=== PATIENT | male | born 1955 | race Caucasian/White ===

== ENCOUNTER 2022-03-19 10:44 | Emergency (ER) | payer OTHER ==
[2022-03-19 11:08] VITALS: BP 152/108
[2022-03-19 12:22] LABS: BASOPHILS # (AUTO) 0.1 10^3/uL (0.0-0.1); BASOPHILS % (AUTO) 0.7 %; EOSINOPHILS # (AUTO) 0.1 10^3/uL (0.0-0.7); EOSINOPHILS % (AUTO) 1.4 %; HCT - HEMATOCRIT 51.1 % (42.0-52.0); HGB - HEMOGLOBIN 16.7 g/dL (14.0-18.0); LYMPHOCYTES % (AUTO) 21.2 %; MEAN CORPUSCULAR HEMOGLOBIN 29.1 pg (27.0-31.0); MEAN CORPUSCULAR HGB CONC 32.7 g/dL (32.0-36.0); MEAN PLATELET VOLUME 11.3 fL (7.4-11.4); MONOCYTES # (AUTO) 0.7 10^3/uL (0.0-1.0); MONOCYTES % (AUTO) 7.8 %; NEUTROPHILS # (AUTO) 6.5 10^3/uL (1.5-6.6); NEUTROPHILS % (AUTO) 68.5 %; PLT - PLATELET COUNT 258 10^3/uL (130-450); RED BLOOD COUNT 5.74 10^6/uL (4.70-6.10); RED CELL DISTRIBUTION WIDTH 14.4 % (12.0-15.0); WHITE BLOOD COUNT 9.4 x10^3/uL (4.8-10.8)
[2022-03-19 12:32] LABS: CALCIUM 9.2 mg/dL (8.5-10.3); CREATININE 1.6 mg/dL (0.6-1.2); POTASSIUM 3.8 mmol/L (3.5-5.0)
[2022-03-19 12:43] LABS: GLUCOSE, URINE (UA) NEGATIVE (NEGATIVE); KETONES,URINE (UA) TRACE mg/dL (NEGATIVE); LEUKOCYTE ESTERASE, URINE NEGATIVE (NEGATIVE); NITRITE,URINE NEGATIVE (NEGATIVE); OCCULT BLOOD,URINE NEGATIVE (NEGATIVE); PROTEIN,URINE 30 mg/dL (NEGATIVE); UROBILINOGEN,URINE 1 (NORMAL) E.U./dL (NORMAL)
[2022-03-19 12:46] LABS: BILIRUBIN,URINE NEGATIVE (NEGATIVE); CLARITY,URINE SL. CLOUDY (CLEAR); ICTOTEST,URINE NEGATIVE
[2022-03-19 13:01] LABS: BACTERIA,URINE Few /HPF (None Seen); MUCUS,URINE Moderate Strands; SQUAMOUS EPITHELIAL CELL,UR MOD Squamous (<= Few); WBC,URINE >25 /HPF (0-3)
[2022-03-19] MEDS ORDERED: iohexoL-300 100 ML VIAL ONE (13:56)
--- NOTE | 2022-03-19 14:06 | ED Physician Documentation ---
PD HPI BACK PAIN - Stated complaint Stated Complaint: BACK PX - Chief complaint Chief Complaint: Trauma Ch/Bk - History obtained from History obtained from: Patient - Additional information Additional information: Patient is a 66-year-old male presenting for evaluation of left flank pain that is been present since Thursday. He slipped and fell coming out of the shower and struck the left flank area against a counter. He denies hitting his head or LOC. He does not take a blood thinner. He has noticed bruising to the area with increased pain over the last day. He denies pain elsewhere. Nothing makes the pain better. The pain is worse with movements. Denies hematuria or difficulties with urination. Review of Systems Constitutional: denies: Fever Nose: denies: Congestion Throat: denies: Sore throat Cardiac: denies: Chest pain / pressure Respiratory: denies: Dyspnea, Cough GI: denies: Abdominal Pain, Vomiting Musculoskeletal: reports: Back pain Neurologic: denies: Head injury PD PAST MEDICAL HISTORY - Present Medications Home Medications: Ambulatory Orders Medication Instructions Recorded Confirmed Oxycodone HCl/Acetaminophen 1 each PO Q6H PRN #14 tablet 03/19/22 [Percocet 5-325 mg Tablet] - Allergies Allergies/Adverse Reactions: Allergies Allergy/AdvReac Type Severity Reaction Status Date / Time morphine AdvReac Headache Verified 03/19/22 10:55 PD ED PE NORMAL - General General: Alert and oriented X 3, No acute distress, Well developed/nourished - HEENT HEENT: Atraumatic, Moist mucous membranes - Neck Neck: Supple, no meningeal sign - Cardiac Cardiac: RRR, Strong equal pulses - Respiratory Respiratory: No respiratory distress, Clear bilaterally - Abdomen Abdomen: Soft, Non tender - Back Back: No spinal TTP. No: No CVA TTP (Ecchymosis to left flank with overlying tenderness) - Derm Derm: Warm and dry - Extremities Extremities: No edema - Neuro Neuro: Normal speech Results - Vitals Vitals: Vital Signs - 24 hr 03/19/22 10:50 Temperature 36.4 C L Heart Rate 95 Respiratory 14 Rate Blood Pressure 152/108 H O2 Saturation 94 Oxygen O2 Source Room air - Labs Labs: Laboratory Tests 03/19/22 03/19/22 03/19/22 12:16 12:16 12:30 WBC 9.4 RBC 5.74 Hgb 16.7 Hct 51.1 MCV 89.0 MCH 29.1 MCHC 32.7 RDW 14.4 Plt Count 258 MPV 11.3 Neut # (Auto) 6.5 Lymph # (Auto) 2.0 Dubois # (Auto) 0.7 Eos # (Auto) 0.1 Baso # (Auto) 0.1 Absolute Nucleated RBC 0.00 Nucleated RBC % 0.0 Sodium 140 Potassium 3.8 Chloride 104 Carbon Dioxide 24 Anion Gap 12.0 BUN 26 H Creatinine 1.6 H Estimated GFR (MDRD) 43 L Glucose 167 H Calcium 9.2 Urine Color DARK YELLOW Urine Clarity SL. CLOUDY Urine pH 6.0 Ur Specific [place] >=1.030 H Urine Protein 30 H Urine Glucose (UA) NEGATIVE Urine Ketones TRACE Urine Occult Blood NEGATIVE Urine Nitrite NEGATIVE Urine Bilirubin NEGATIVE Urine Urobilinogen 1 (NORMAL) Ur Leukocyte Esterase NEGATIVE Urine RBC 6-10 H Urine WBC >25 H Ur Squamous Epith Cells MOD Squamous H Urine Bacteria Few Urine Casts 0-2 WBC Casts Urine Mucus Moderate Strands Ur Microscopic Review INDICATED Urine Culture Comments NOT INDICATED PD MEDICAL DECISION MAKING - ED course Complexity details: reviewed results, re-evaluated patient, d/w patient ED course: Patient presenting for evaluation of flank hematoma after recent fall. Has no midline spinal tenderness and has a normal neuro exam. Abdominal exam is benign and vital signs are overall stable. Labs are reassuring. CT scan does not show signs of intra abdominal bleeding but does show fractures of 3 Transverse spinous processes. I did review these findings with the patient. He is not requiring pain medication here but I did feel it could be helpful for him to get some sleep at night as that is when the pain is more severe. I did encourage him to have close follow-up with the primary care doctor. Patient was counseled on concerning symptoms to return for. Departure - Departure Disposition: 01 Home, Self Care Clinical Impression: Lumbar transverse process fracture Condition: Stable Instructions: ED Fx Transverse Spinous Process Follow-Up: Tonja Gunter ARNP [Provider Admit Priv/Credential] - Prescriptions: Oxycodone HCl/Acetaminophen [Percocet 5-325 mg Tablet] 1 each PO Q6H PRN #14 tablet PRN Reason: pain Comments: You were evaluated for pain to your back after an injury. You have fractures to 3 of your lumbar vertebra. I have sent a prescription for pain medication to [facility] in [place]. Would also recommend using ice or lidocaine patches to help with your pain. I would recommend follow-up with your primary care doctor. If you do not have 1 I have listed one that You can establish care with. If you have any worsening symptoms please return to the ER. IMPRESSION: 1. Acute slightly displaced fracture involving left transverse processes of L1- L3 vertebral bodies. No other fracture or dislocation. No vertebral body compression fracture or spondylolisthesis. 2. No acute solid organ injury is seen in abdomen or pelvis. No free fluid or free air. 3. Right renal cyst as above. No stones or hydronephrosis. Mild diffuse bladder wall thickening which may be due to underdistention. Low-grade cystitis cannot be excluded. I am prescribing a short course of narcotic pain medication for you. These are potentially dangerous and addictive medications that should be used carefully. These medications may constipate you. Take an oxzo-ozp-ihaaqnm stool softener (docusate) twice daily with plenty of water while taking these medications. If you go 24 hours without a bowel movement, take poin-qgj-riontfo miralax, per package instructions. Do not drink or drive while taking these medications. If you received narcotic or sedating medications while in the emergency department, do not drive for 24 hours. Store this medication in a safe, secure place and out of reach of children. It is a violation of federal law to give or sell this medication to another person or to use in a manner other than prescribed. The ED will not refill narcotic prescriptions, including prescriptions lost or stolen. To dispose of unwanted medications: 1. [facility] at [address] in [place] has a medication drop box. They accept prescription medications (in pill form) Thursday through Thursday 9:00 a.m. to 5:00 p.m. 2. [facility] accepts prescription medications (in pill form only) for disposal year round. Call for more information. 3. Contact the [facility] for the next [facility] sponsored prescription drug collection event. , [phone], or [phone]; Note that many narcotic pain relievers also contain Tylenol/acetaminophen. Please ensure that your total dose of acetaminophen from all sources does not exceed 3 g (3000 mg) per day. Discharge Date/Time: 03/19/22 15:55
--- NOTE | 2022-03-19 15:21 | CT Report ---
PROCEDURE: ABDOMEN/PELVIS W INDICATIONS: L flank pain/hematoma/fell into tub CONTRAST: 100mL Omnipaque 300 TECHNIQUE: After the administration of IV contrast, 5 mm thick sections acquired from the diaphragms to the symp hysis. 5 mm thick coronal and sagittal reformats were acquired. For radiation dose reduction, the f ollowing was used: automated exposure control, adjustment of mA and/or kV according to patient size. COMPARISON: None. FINDINGS: Image quality: Excellent. ABDOMEN: Lung bases: Lung bases are clear. Heart size is normal. Solid organs: Liver and spleen are normal in size and enhancement. Moderate to severe hepatic steat osis is seen. No hepatic laceration or discrete hepatic lesion. Gallbladder is surgically absent. Daniel iary system is non dilated. Pancreas enhances normally. No adrenal nodules. Kidneys demonstrate no rmal size and enhancement, without hydronephrosis. 4.4 x 4.7 cm simple appearing cyst in mid pole of right kidney is seen. Peritoneum and bowel: Bowel loops demonstrate normal wall thickness and caliber. No free fluid or a ir. Nodes and vessels: No retroperitoneal or mesenteric adenopathy by size criteria. Aorta and inferior vena cava are normal in size. Miscellaneous: Small umbilical hernia is seen containing fat only. PELVIS: Genitourinary: Mild diffuse bladder wall thickening, no discrete bladder wall mass. Miscellaneous: No inguinal hernias or adenopathy. There is prior prostatectomy with surgical clips seen. Bones: No suspicious bony lesions. No vertebral body compression fractures. Acute displaced fractu res involving left transverse processes of L1-L3 levels are seen IMPRESSION: 1. Acute slightly displaced fracture involving left transverse processes of L1-L3 vertebral bodies. N o other fracture or dislocation. No vertebral body compression fracture or spondylolisthesis. 2. No acute solid organ injury is seen in abdomen or pelvis. No free fluid or free air. 3. Right renal cyst as above. No stones or hydronephrosis. Mild diffuse bladder wall thickening which may be due to underdistention. Low-grade cystitis cannot be excluded. Reviewed by: Roderick Guerrero MD on 03/19/2022 3:20 PM PST Approved by: Roderick Guerrero MD on 03/19/2022 3:20 PM PST Station ID: [id number]
[2022-03-19] MEDS ORDERED: iohexoL-300 100 ML VIAL IVP ONE (18:21)
== END 2022-03-19 15:55 | disposition home or self-care (01) ==
LOC: ED 10:44
DX: S32.009A Unspecified fracture of unspecified lumbar vertebra, initial encounter for closed fracture (principal); W18.2XXA Fall in (into) shower or empty bathtub, initial encounter; Y93.E1 Activity, personal bathing and showering
CPT/HCPCS: 36415; 74177; 80048; 81001; 85025; 99282; 99284; Q9967; 81003; 87086

== ENCOUNTER 2022-06-17 14:48 | Emergency (ER) | payer OTHER ==
[2022-06-17 14:57] VITALS: BP 150/103
--- NOTE | 2022-06-17 15:17 | ED Physician Documentation ---
History of Present Illness - Stated complaint Stated Complaint: BACK PX - Chief complaint Chief Complaint: Back Pain - Additonal information Additional information: 66 -year-old male presents to the emergency department requesting we fill out medical forms allowing him to have a modified work duty and a special chair at work. He states that in September he fell and fractured his ribs. His employer is requiring him to present to the office 2 to 3 days a week and he finds the chairs they are too uncomfortable. States he no longer has his primary care doctor as his doctor retired. Review of Systems Musculoskeletal: reports: Back pain PD PAST MEDICAL HISTORY - Past Medical History Past Medical History: Yes Cardiovascular: None Respiratory: Sleep apnea Neuro: None Endocrine/Autoimmune: None GI: None : None, Other HEENT: None Psych: None Musculoskeletal: Gout, Chronic back pain Derm: None Other Past Medical History: prostate cancer - Past Surgical History Past Surgical History: Yes General: Cholecystectomy - Present Medications Home Medications: Ambulatory Orders Medication Instructions Recorded Confirmed Colchicine 0.6 mg PO BID PRN 06/17/22 06/17/22 - Allergies Allergies/Adverse Reactions: Allergies Allergy/AdvReac Type Severity Reaction Status Date / Time morphine AdvReac Headache Verified 06/17/22 14:53 - Social History Does the pt smoke?: No Smoking Status: Never smoker Does the pt drink ETOH?: No Does the pt have substance abuse?: No - Immunizations Immunizations are current?: No PD ED PE NORMAL - General General: Alert and oriented X 3, Well developed/nourished (obese) - Neuro Neuro: Other (Normal gait) - Psych Psych: Other (angry affect) Results - Vitals Vitals: Vital Signs - 24 hr 06/17/22 14:53 Temperature 37.1 C Heart Rate 100 Respiratory 18 Rate Blood Pressure 150/103 H O2 Saturation 95 Oxygen O2 Source Room air PD Medical Decision Making - ED course Complexity details: d/w patient ED course: 66-year-old male requesting we fill out longer-term paperwork making allowances for specialized chair at work as well as limiting his time that he needs to be in office. Unfortunately I discussed with the patient that this type of paperwork is best completed by primary care provider so they can monitor longer- term progress as well as follow-up with any questions the employer may have. This is exceedingly difficult for emergency department providers to do. The patient is frustrated and angry. He states that he should have been told in registration that ER doctors cannot fill out this kind of paperwork. I discussed with him that EMTALA is a guideline that does not allow us to deny a medical screening exam or refuse to evalute a patient even if for paperwork problems. I encouraged him to reestablish with a pcp or to use one of the local walk in clinics to have the paperwork filled out. The patient ultimately eloped from the ED frustrated and angry. Departure - Departure Disposition: ED Elope Clinical Impression: Encounter for medical screening examination
== END 2022-06-17 15:49 | disposition left against medical advice (07) ==
LOC: ED 14:48
DX: Z02.79 Encounter for issue of other medical certificate (principal)
CPT/HCPCS: 99281; 99282

== ENCOUNTER 2022-09-11 10:50 | Outpatient (CLI) | payer OTHER ==
[2022-09-11 14:28] LABS: BASOPHILS % (AUTO) 0.3 %; EOSINOPHILS # (AUTO) 0.1 10^3/uL (0.0-0.7); EOSINOPHILS % (AUTO) 1.6 %; HCT - HEMATOCRIT 53.4 % (42.0-52.0); HGB - HEMOGLOBIN 17.2 g/dL (14.0-18.0); LYMPHOCYTES # (AUTO) 2.1 10^3/uL (1.5-3.5); LYMPHOCYTES % (AUTO) 30.7 %; MEAN CORPUSCULAR HEMOGLOBIN 28.5 pg (27.0-31.0); MEAN CORPUSCULAR HGB CONC 32.2 g/dL (32.0-36.0); MEAN CORPUSCULAR VOLUME 88.4 fL (80.0-94.0); MEAN PLATELET VOLUME 11.3 fL (7.4-11.4); MONOCYTES # (AUTO) 0.5 10^3/uL (0.0-1.0); MONOCYTES % (AUTO) 7.9 %; NEUTROPHILS % (AUTO) 59.1 %; PLT - PLATELET COUNT 267 10^3/uL (130-450); RED BLOOD COUNT 6.04 10^6/uL (4.70-6.10); WHITE BLOOD COUNT 6.7 x10^3/uL (4.8-10.8)
[2022-09-11 14:59] LABS: ALBUMIN 3.9 g/dL (3.2-5.5); ALBUMIN/GLOBULIN RATIO 1.1 (1.0-2.2); ALKALINE PHOSPHATASE 38 IU/L (42-121); ALT ALANINE AMINOTRANSFERASE 38 IU/L (10-60); AST ASPARTATE AMINOTRANSFERASE 22 IU/L (10-42); BUN - BLOOD UREA NITROGEN 16 mg/dL (6-20); CALCIUM 9.4 mg/dL (8.5-10.3); CARBON DIOXIDE - CO2 29 mmol/L (21-32); CHLORIDE 108 mmol/L (101-111); CHOL/HDL RATIO 8.5 (<5.0); CHOLESTEROL 262 mg/dL; CREATININE 1.2 mg/dL (0.6-1.2); GFR - MDRD 60 (>89); GLUCOSE 115 mg/dL (70-100); HDL CHOLESTEROL 31 mg/dL; POTASSIUM 3.9 mmol/L (3.5-5.0); SODIUM 143 mmol/L (135-145); TOTAL PROTEIN 7.4 g/dL (6.7-8.2); TRIGLYCERIDES 413 mg/dL; URIC ACID 9.2 mg/dL (2.6-7.2)
[2022-09-11 15:32] LABS: LDL CHOLESTEROL,DIRECT 164 mg/dL; LDLD/HDL RATIO 5.3 (<3.6)
[2022-09-11 20:12] LABS: ESTIMATED AVERAGE GLUCOSE 123 mg/dL (70-100); HEMOGLOBIN A1c% 5.9 % (4.27-6.07)
== END 2022-09-11 10:51 | disposition home or self-care (01) ==
LOC: LAB.S 10:50
PROVIDERS: ATTEND Nurse Practitioner Acute Care
DX: M1A.9XX0 Chronic gout, unspecified, without tophus (tophi) (principal); Z13.1 Encounter for screening for diabetes mellitus; Z85.46 Personal history of malignant neoplasm of prostate; Z13.228 Encounter for screening for other metabolic disorders; Z13.220 Encounter for screening for lipoid disorders; Z13.29 Encounter for screening for other suspected endocrine disorder; Z13.0 Encounter for screening for diseases of the blood and blood-forming organs and certain disorders involving the immune mechanism
CPT/HCPCS: 36415; 80053; 80061; 83036; 83721; 84153; 84443; 84550; 85025

== ENCOUNTER 2022-10-22 12:54 | Outpatient (CLI) | payer OTHER ==
[2022-10-22 19:42] LABS: BASOPHILS # (AUTO) 0.1 10^3/uL (0.0-0.1); EOSINOPHILS # (AUTO) 0.1 10^3/uL (0.0-0.7); HCT - HEMATOCRIT 49.8 % (42.0-52.0); HGB - HEMOGLOBIN 16.2 g/dL (14.0-18.0); LYMPHOCYTES # (AUTO) 1.4 10^3/uL (1.5-3.5); LYMPHOCYTES % (AUTO) 19.8 %; MEAN CORPUSCULAR HEMOGLOBIN 29.6 pg (27.0-31.0); MEAN CORPUSCULAR HGB CONC 32.5 g/dL (32.0-36.0); MEAN CORPUSCULAR VOLUME 90.9 fL (80.0-94.0); MEAN PLATELET VOLUME 11.5 fL (7.4-11.4); MONOCYTES # (AUTO) 0.5 10^3/uL (0.0-1.0); MONOCYTES % (AUTO) 7.5 %; NEUTROPHILS # (AUTO) 4.9 10^3/uL (1.5-6.6); NEUTROPHILS % (AUTO) 69.3 %; PLT - PLATELET COUNT 248 10^3/uL (130-450); RED BLOOD COUNT 5.48 10^6/uL (4.70-6.10); RED CELL DISTRIBUTION WIDTH 15.8 % (12.0-15.0)
[2022-10-22 19:51] LABS: ALBUMIN 3.7 g/dL (3.2-5.5); CALCIUM 9.1 mg/dL (8.5-10.3); CREATININE 1.1 mg/dL (0.6-1.2); TOTAL PROTEIN 7.3 g/dL (6.7-8.2)
== END 2022-10-22 12:55 | disposition home or self-care (01) ==
LOC: LAB.S 12:54
PROVIDERS: ATTEND Nurse Practitioner Acute Care
DX: Z79.899 Other long term (current) drug therapy (principal)
CPT/HCPCS: 36415; 80053; 85025